=== PATIENT | male | born 1975 | race Caucasian/White ===

== ENCOUNTER 2018-04-23 15:56 | Emergency (ER) | payer OTHER ==
--- NOTE | 2018-04-23 16:18 | ED ---
General Adult HPI - General Stated complaint: Tooth pain Time Seen by Provider: 04/23/18 16:12 Source: patient, RN notes reviewed Limitations: no limitations - History of Present Illness Initial comments: 42-year-old male presents to the emergency determine for a chief complaint of dental pain 2 days. Patient states he broke a tooth off several years ago. He states he has had intermittent pain in that area since then. He however he states pain is worse than normal. He does admit to swelling. He denies any sublingual swelling. Denies any difficulty swallowing. No neck stiffness. No fevers. Patient states he has not followed up with a dentist for this. Patient has no other complaints at this time including shortness of breath, chest pain, abdominal pain, nausea or vomiting, headache, or visual changes. - Related Data Previous Rx's Medication Instructions Recorded Naproxen [Naprosyn] 500 mg PO Q12HR #24 tab 12/09/14 Ibuprofen [Motrin] 600 mg PO Q6HR PRN #20 tab 04/23/18 Penicillin V Potassium [Pen Vee K] 500 mg PO Q6H 10 Days tablet 04/23/18 Allergies Allergy/AdvReac Type Severity Reaction Status Date / Time No Known Allergies Allergy Verified 12/09/14 02:32 Review of Systems ROS Statement: Those systems with pertinent positive or pertinent negative responses have been documented in the HPI. ROS Other: All systems not noted in ROS Statement are negative. Past Medical History Past Medical History: No Reported History History of Any Multi-Drug Resistant Organisms: None Reported Past Surgical History: No Surgical Hx Reported Past Psychological History: No Psychological Hx Reported Smoking Status: Current every day smoker Past Alcohol Use History: None Reported Past Drug Use History: None Reported General Exam General appearance: alert, in no apparent distress Head exam: Present: atraumatic, normocephalic, normal inspection Eye exam: Present: normal appearance, PERRL, EOMI. Absent: scleral icterus, conjunctival injection, periorbital swelling ENT exam: Present: TM's normal bilaterally, normal external ear exam. Absent: normal exam, normal oropharynx (Patient has a 1 cm x 1 cm abscess noted by tooth 20. No sublingual edema.) Neck exam: Present: normal inspection, full ROM. Absent: tenderness, meningismus, lymphadenopathy Respiratory exam: Present: normal lung sounds bilaterally. Absent: respiratory distress, wheezes, rales, rhonchi, stridor Cardiovascular Exam: Present: regular rate, normal rhythm, normal heart sounds. Absent: systolic murmur, diastolic murmur, rubs, gallop, clicks Neurological exam: Present: alert, oriented X3, CN II-XII intact Psychiatric exam: Present: normal affect, normal mood Course Vital Signs 04/23/18 16:34 Temperature 97.1 F L Pulse Rate 64 Respiratory 18 Rate Blood Pressure 132/63 O2 Sat by Pulse 100 Oximetry Procedures - Incision & Drainage Consent Obtained: verbal consent Site: other (Dental) Scalpel Used: #11 (18-gauge used) I&D Drainage Obtained: Pus (Significant amount of pus) Patient Tolerated Procedure: well, no complications Medical Decision Making - Medical Decision Making 42-year-old male presents to the emergency department for a chief clamp dental abscess. This has been ongoing for 2 days. On exam patient is a 1 cm abscess noted by tooth 20. This was drained with an 18-gauge needle with significant purulent material. Patient was given a starter pack of penicillin and Motrin. Given a prescription for these. Patient will follow up with dentist. Given referral to [facility]. Educated to apply ice to the area. Educated to return if he has fevers or any other worsening symptoms. Disposition Clinical Impression: Dental abscess Disposition: HOME SELF-CARE Condition: Good Instructions (If sedation given, give patient instructions): Dental Abscess (ED ) Additional Instructions: Please take antibiotic as directed. Apply ice to the area. Take Motrin and Tylenol for pain. Follow-up with dentist as soon as possible. Return here to the emergency department if your having worsening symptoms. [facility] Address: [address] [place] [address] Phone: Prescriptions: Ibuprofen [Motrin] 600 mg PO Q6HR PRN #20 tab PRN Reason: Pain Penicillin V Potassium [Pen Vee K] 500 mg PO Q6H 10 Days tablet Is patient prescribed a controlled substance at d/c from ED?: No Referrals: Doris Pack MD [STAFF PHYSICIAN] - 1-2 days Time of Disposition: 16:55
[2018-04-23 16:37] VITALS: BP 132/63; PULSE 64; RESP 18; TEMP 97.1
[2018-04-23] MEDS ORDERED: PENICILLIN VK 500MG STARTER 4 TAB BTL PO STA (16:48)
[2018-04-23] MEDS ORDERED: IBUPROFEN 600 MG STARTER PACK 4 TAB BTL PO STA (16:48)
== END 2018-04-23 17:13 | disposition home or self-care (01) ==
LOC: EC 15:56
DX: K04.7 Periapical abscess without sinus (principal); F17.200 Nicotine dependence, unspecified, uncomplicated
CPT/HCPCS: 41800; 99282

== ENCOUNTER 2018-07-12 18:06 | Emergency (ER) | payer OTHER ==
--- NOTE | 2018-07-12 18:41 | ED ---
ENT HPI - General Chief complaint: Dental/Oral Stated complaint: DENTAL PAIN Time Seen by Provider: 07/12/18 18:12 Source: patient Mode of arrival: ambulatory Limitations: no limitations - History of Present Illness Initial comments: Patient is a 42-year-old male presenting to emergency department for dental pain and swelling. Patient reports the symptoms started yesterday on tooth #19. Patient reports pain and swelling in the same tooth multiple times. Patient reports not seen a dentist for a long time to address these issues but has an appointment scheduled for next week. Patient reports the pain is throbbing and not radiating anywhere. Patient denies fever, headache, nausea, vomiting, stiff neck dysphagia or odynophagia. Patient denies taking any medication to alleviate the symptoms. - Related Data Previous Rx's Medication Instructions Recorded Naproxen [Naprosyn] 500 mg PO Q12HR #24 tab 12/09/14 Ibuprofen [Motrin] 600 mg PO Q6HR PRN #20 tab 04/23/18 Penicillin V Potassium [Pen Vee K] 500 mg PO Q6H 10 Days tablet 04/23/18 Acetaminophen-Codeine 300-30mg 1 tab PO Q4H PRN #20 tablet 07/12/18 [Tylenol #3] Clindamycin [Cleocin] 450 mg PO TID #21 capsule 07/12/18 Allergies Allergy/AdvReac Type Severity Reaction Status Date / Time No Known Allergies Allergy Verified 07/12/18 18:09 Review of Systems ROS Statement: Those systems with pertinent positive or pertinent negative responses have been documented in the HPI. ROS Other: All systems not noted in ROS Statement are negative. Past Medical History Past Medical History: No Reported History History of Any Multi-Drug Resistant Organisms: None Reported Past Surgical History: No Surgical Hx Reported Past Psychological History: No Psychological Hx Reported Smoking Status: Former smoker Past Alcohol Use History: Occasional Past Drug Use History: Marijuana General Exam Limitations: no limitations General appearance: alert, in no apparent distress Head exam: Present: atraumatic, normocephalic, normal inspection Eye exam: Present: normal appearance ENT exam: Present: normal exam. Absent: normal oropharynx (Inflammation and swelling in the region of tooth #19. No fluid discharge. ) Neck exam: Present: normal inspection, full ROM. Absent: lymphadenopathy Respiratory exam: Present: normal lung sounds bilaterally Cardiovascular Exam: Present: regular rate, normal rhythm, normal heart sounds GI/Abdominal exam: Present: soft Neurological exam: Present: alert, oriented X3 Psychiatric exam: Present: normal affect, normal mood Skin exam: Present: warm, intact, normal color Course Vital Signs 07/12/18 18:07 Temperature 98.5 F Pulse Rate 84 Respiratory 18 Rate Blood Pressure 135/81 O2 Sat by Pulse 98 Oximetry Medical Decision Making - Medical Decision Making Patient is a 42-year-old male presenting to emergency Department with left-sided dental swelling and pain. Based on physical examination I suspect this to be the early stages of a dental abscess but I don't think it's ready to be drained. Patient will be prescribed clindamycin. Patient advised to follow up with dentist. Patient was given Tylenol 3 for pain control. Patient advised to return to emergency department if symptoms worsen. Case discussed with physician. Disposition Clinical Impression: Dental abscess Disposition: HOME SELF-CARE Condition: Stable Instructions (If sedation given, give patient instructions): Dental Abscess (ED) Additional Instructions: Please take prescribed medication as directed. Please follow-up with dentist. Please return to emergency department if symptoms worsen. Is patient prescribed a controlled substance at d/c from ED?: No Referrals: None,Stated [Primary Care Provider] - 1-2 days Time of Disposition: 19:09
[2018-07-12] MEDS ORDERED: CLINDAMYCIN 150 MG CAP PO STA (18:43)
[2018-07-12 19:22] VITALS: BP 129/89; PULSE 80; RESP 19; TEMP 98
== END 2018-07-12 19:22 | disposition home or self-care (01) ==
LOC: EC 18:06
DX: K04.7 Periapical abscess without sinus (principal); Z87.891 Personal history of nicotine dependence
CPT/HCPCS: 99282

== ENCOUNTER 2019-04-15 08:54 | Emergency (ER) | payer OTHER ==
[2019-04-15 09:06] VITALS: BP 143/83; PULSE 99; RESP 20; TEMP 98.3
[2019-04-15] MEDS ORDERED: ALPRAZolam 1 MG TAB PO STA (09:47)
--- NOTE | 2019-04-15 09:51 | ED ---
General Adult HPI - General Chief complaint: Anxiety Stated complaint: anxiety Time Seen by Provider: 04/15/19 09:08 Source: patient Mode of arrival: ambulatory Limitations: no limitations - History of Present Illness Initial comments: Dictation was produced using [employer] dictation software. please excuse any grammatical, word or spelling errors. Chief Complaint: 43-year-old male presents with anxiety History of Present Illness: 43-year-old male presents with anxiety. Patient states that he's been having increased frequency of anxiety attacks. Patient states he gets this when he gets stressed out. He states his distress up because of recent relocation. Patient has any chest pain shortness of breath. He just got insurance and is awaiting an appointment with his primary care physician for outpatient management of his anxiety. He reports that he is given request of his PCP to have counseling for his anxiety. Patient has no medical complaints at this time. The ROS documented in this emergency department record has been reviewed and confirmed by me. Those systems with pertinent positive or negative responses have been documented in the HPI. All other systems are other negative and/or noncontributory. PHYSICAL EXAM: General Impression: Alert and oriented x3, not in acute distress HEENT: Normocephalic atraumatic, extra-ocular movements intact, pupils equal and reactive to light bilaterally, mucous membranes moist. Cardiovascular: Heart regular rate and rhythm, S1&S2 audible, no murmurs, rubs or gallops Chest: Lungs clear to auscultation bilaterally, no rhonchi, no wheeze, no rales Abdomen: Bowel sounds present, abdomen soft, non-tender, non-distended, no organomegaly Musculoskeletal: Pulses present and equal in all extremities, no peripheral edema Motor: no focal deficits noted Neurological: CN II-XII grossly intact, no focal motor or sensory deficits noted Skin: Intact with no visualized rashes Psych: Normal affect and mood ED course: 43-year-old male presents with chief complaint of anxiety. He request a dose of Xanax. He does have outpatient follow-up to have evaluation and treatment for anxiety. As upon arrival are within acceptable limits. Patient given 1 dose of oral Xanax. Patient discharged and encouraged to follow up with his primary care physician. Return parameters discussed. - Related Data Previous Rx's Medication Instructions Recorded Naproxen [Naprosyn] 500 mg PO Q12HR #24 tab 12/09/14 Cyclobenzaprine [Flexeril] 10 mg PO TID PRN #15 tab 08/14/18 Ibuprofen [Motrin] 600 mg PO Q8HR PRN #30 tab 08/14/18 Allergies Allergy/AdvReac Type Severity Reaction Status Date / Time No Known Allergies Allergy Verified 04/15/19 09:06 Review of Systems ROS Statement: Those systems with pertinent positive or pertinent negative responses have been documented in the HPI. ROS Other: All systems not noted in ROS Statement are negative. Past Medical History Past Medical History: No Reported History History of Any Multi-Drug Resistant Organisms: None Reported Past Surgical History: No Surgical Hx Reported Past Psychological History: No Psychological Hx Reported, Anxiety Smoking Status: Former smoker Past Alcohol Use History: Occasional Past Drug Use History: Marijuana General Exam Limitations: no limitations Course Vital Signs 04/15/19 09:03 Temperature 98.3 F Pulse Rate 99 Respiratory 20 Rate Blood Pressure 143/83 O2 Sat by Pulse 97 Oximetry Disposition Clinical Impression: Acute anxiety Disposition: HOME SELF-CARE Instructions (If sedation given, give patient instructions): Generalized Anxiet y Disorder (ED) Is patient prescribed a controlled substance at d/c from ED?: No Referrals: None,Stated [Primary Care Provider] - 1-2 days Time of Disposition: 09:50
== END 2019-04-15 09:58 | disposition home or self-care (01) ==
LOC: EC 08:54
DX: F41.9 Anxiety disorder, unspecified (principal); Z87.891 Personal history of nicotine dependence
CPT/HCPCS: 99283

== ENCOUNTER 2023-12-29 08:32 | Emergency (ER) | payer OTHER ==
[2023-12-29 08:38] VITALS: BP 128/86; PULSE 68; RESP 20; TEMP 98.1
--- NOTE | 2023-12-29 08:56 | XR ---
Right knee. HISTORY: Pain following injury. COMPARISON: None. TECHNIQUE: 3 views of the right knee were obtained. FINDINGS: There is no fracture, dislocation, intraosseous or intra-articular abnormality. No joint effusion. IMPRESSION: No evidence of acute trauma. [facility], , 12/29/2023 8:53 AM
--- NOTE | 2023-12-29 09:14 | ED ---
Lower Extremity Injury HPI - General Chief Complaint: Extremity Injury, Lower Stated Complaint: R knee injury Time Seen by Provider: 12/29/23 09:13 Source: patient, RN notes reviewed Mode of arrival: ambulatory Limitations: no limitations - History of Present Illness Initial Comments: 48-year-old male presenting to the ER with a chief complaint of right knee injury. Patient states last night he was walking through the parking lot and attempted to cross a downsloping grass area when his right knee "gave out" on him. He does report that he fell but denies any head injury or other injuries from fall. Patient states most of his pain is over medial aspect of right knee. Patient states he is able to ambulate with toe-touch weightbearing due to pain. He does admit to a clicking sensation with flexion and extension of knee. Denies paresthesias. Patient reports he has been taking [id number] ibuprofen for pain control. No other complaints. - Related Data Previous Rx's Medication Instructions Recorded Naproxen [Naprosyn] 500 mg PO Q12HR #24 tab 12/09/14 Cyclobenzaprine [Flexeril] 10 mg PO TID PRN #15 tab 08/14/18 Ibuprofen [Motrin] 600 mg PO Q8HR PRN #30 tab 08/14/18 Allergies Allergy/AdvReac Type Severity Reaction Status Date / Time No Known Allergies Allergy Verified 12/29/23 08:38 Review of Systems ROS Statement: Those systems with pertinent positive or pertinent negative responses have been documented in the HPI. ROS Other: All systems not noted in ROS Statement are negative. Past Medical History Past Medical History: No Reported History History of Any Multi-Drug Resistant Organisms: None Reported Past Surgical History: No Surgical Hx Reported Past Psychological History: No Psychological Hx Reported, Anxiety Smoking Status: Never smoker Past Alcohol Use History: Occasional Past Drug Use History: Marijuana General Exam Limitations: no limitations General appearance: alert, in no apparent distress Respiratory exam: Present: normal lung sounds bilaterally. Absent: respiratory distress, wheezes, rales, rhonchi, stridor Cardiovascular Exam: Present: regular rate, normal rhythm, normal heart sounds. Absent: systolic murmur, diastolic murmur, rubs, gallop, clicks Extremities exam: Present: tenderness (Right medial knee with associated edema. Full range of motion. Positive crepitus right knee. Pain with valgus and varus stress. 2+ DP pulse sensation intact) Neurological exam: Present: alert, oriented X3, CN II-XII intact Skin exam: Present: warm, dry, intact, normal color. Absent: rash Course Vital Signs 12/29/23 08:36 Temperature 98.1 F Pulse Rate 68 Respiratory 20 Rate Blood Pressure 128/86 O2 Sat by Pulse 99 Oximetry Medical Decision Making - Medical Decision Making Was pt. sent in by a medical professional or institution (, PA, SVP, urgent care, hospital, or care home...) When possible be specific @ -No Did you speak to anyone other than the patient for history (EMS, parent, family, police, friend...)? What history was obtained from this source @ -No Did you review nursing and triage notes (agree or disagree)? Why? @ -I reviewed and agree with nursing and triage notes Were old charts reviewed (outside hosp., previous admission, EMS record, old EKG, old radiological studies, urgent care reports/EKG's, care home records)? Report findings @ -No old charts were reviewed Differential Diagnosis (chest pain, altered mental status, abdominal pain women, abdominal pain men, vaginal bleeding, weakness, fever, dyspnea, syncope, headache, dizziness, GI bleed, back pain, seizure, CVA, palpatations, mental health, musculoskeletal)? @ -Differential Musculoskeletal: Muscular strain, contusion, ligament sprain, fracture, arthritis, septic arthritis, bursitis, cellulitis, muscle spasm, nerve compression, DVT, arterial occlusion, herpes zoster, electrolyte abnormality, tumor.... This is not meant to be in all inclusive list EKG interpreted by me (3pts min.). @ -None done X-rays interpreted by me (1pt min.). @ -Right knee x-rays interpreted by me negative for acute osseous process CT interpreted by me (1pt min.). @ -None done U/S interpreted by me (1pt. min.). @ -None done What testing was considered but not performed or refused? (CT, X-rays, U/S, labs)? Why? @ -None What meds were considered but not given or refused? Why? @ -Patient refused analgesic medications. Did you discuss the management of the patient with other professionals (professionals i.e. , BASIL, SVP, lab, RT, psych nurse, social media marketing analyst, truss puller helper, teacher, highway patrol officer, catalytic case operator)? Give summary @ -No Was smoking cessation discussed for >3mins.? @ -No Was critical care preformed (if so, how long)? @ -No Were there social determinants of health that impacted care today? How? (Homelessness, low income, unemployed, alcoholism, drug addiction, transportation, low edu. Level, literacy, decrease access to med. care, longterm, rehab)? @ -No Was there de-escalation of care discussed even if they declined (Discuss DNR or withdrawal of care, Hospice)? DNR status @ -No What co-morbidities impacted this encounter? (DM, HTN, Smoking, COPD, CAD, Cancer, CVA, ARF, Chemo, Hep., AIDS, mental health diagnosis, sleep apnea, morbid obesity)? @ -None Was patient admitted / discharged? Hospital course, mention meds given and route, prescriptions, significant lab abnormalities, going to OR and other pertinent info. @ -Discharge. 48-year-old male presented to the ER with a chief complaint of right knee injury. History and physical exam completed. Vitals stable. Patient in no signs of acute distress. Right lower extremity neurovascular intact. There is mild edema to right knee joint. Crepitus noted on exam. No overlying skin changes. Patient has full range of motion. X-ray obtained negative. Patient refused analgesic medications. Pain believed to be soft tissue/ligamentous in nature. Conservative treatment options discussed. Advise close follow-up with orthopedics, referral given. Strict return parameters discussed. Patient discharged in stable condition with follow-up to orthopedics. Patient verbally expressed understanding and agreement with care plan. Case discussed with ED attending, Dr. Sequeira. Undiagnosed new problem with uncertain prognosis? @ -No Drug Therapy requiring intensive monitoring for toxicity (Heparin, Nitro, Insulin, Cardizem)? @ -No Were any procedures done? @ -No Diagnosis/symptom? @ -Knee sprain Acute, or Chronic, or Acute on Chronic? @ -Acute Uncomplicated (without systemic symptoms) or Complicated (systemic symptoms)? @ -Uncomplicated Side effects of treatment? @ -No Exacerbation, Progression, or Severe Exacerbation? @ -No Poses a threat to life or bodily function? How? (Chest pain, [place], [place], pneumonia, PE, COPD, DKA, ARF, appy, cholecystitis, CVA, Diverticulitis, Homicidal, Suicidal, threat to staff... and all critical care pts) @ -No - Radiology Data Radiology results: report reviewed, image reviewed Disposition Clinical Impression: Knee sprain Disposition: HOME SELF-CARE Condition: Stable Instructions (If sedation given, give patient instructions): Knee Sprain (ED) Additional Instructions: Recommend rest, ice, elevation and compression. Follow-up with orthopedics. Return to the ER for any new or worsening concerns. Is patient prescribed a controlled substance at d/c from ED?: No Referrals: None,Stated [Primary Care Provider] - 1-2 days Porfirio Childs MD [STAFF PHYSICIAN] - 1-2 days Time of Disposition: 09:14
== END 2023-12-29 09:22 | disposition home or self-care (01) ==
LOC: EC 08:32
DX: S83.91XA Sprain of unspecified site of right knee, initial encounter (principal); X58.XXXA Exposure to other specified factors, initial encounter; Y93.01 Activity, walking, marching and hiking; Y92.481 Parking lot as the place of occurrence of the external cause
CPT/HCPCS: 99283